=== PATIENT | male | born 1995 | race Hispanic/Latino ===

== ENCOUNTER 2019-07-06 11:21 | Emergency (ER) | payer SELFPAY ==
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
--- NOTE | 2019-07-06 13:48 | RAD REPORT ---
EXAM DESCRIPTION: RAD -Hand Left 3 View - 07/06/2019 1:01 pm CLINICAL HISTORY: Left hand pain status post injury FINDINGS: Intra-articular avulsion fracture fragment base of the third middle phalanx. No dislocatio n
[2019-07-06 14:19] VITALS: TEMP 98.3; O2SAT 99
[2019-07-06 14:20] VITALS: BP 128/69
== END 2019-07-06 14:05 | disposition home or self-care (01) ==
LOC: ER 11:21
DX: S62.623A Displaced fracture of middle phalanx of left middle finger, initial encounter for closed fracture (principal); V47.5XXA Car driver injured in collision with fixed or stationary object in traffic accident, initial encounter; Y93.89 Activity, other specified; Y92.410 Unspecified street and highway as the place of occurrence of the external cause
CPT/HCPCS: 99283

== ENCOUNTER 2019-09-10 12:21 | Emergency (ER) | payer SELFPAY ==
[2019-09-10] MEDS ORDERED: ONDANSETRON 4 MG (ODT) TAB ONE (13:14)
--- NOTE | 2019-09-10 13:35 | EDPHYS ---
Physician Documentation [facility] Name: Salo Lorenzo Age: 24 yrs Sex: Male : 1995 Arrival Date: 09/10/2019 Time: 12:22 Bed 10 Private MD: ED Physician Cristóbal Ram HPI: 09/10 13:03 This 24 yrs old Male presents to ER via Ambulatory with complaints of Flu rn Symptoms. 13:03 The patient or guardian reports cough, flu symptoms. Onset: The symptoms/episode rn began/occurred yesterday. Severity of symptoms: At their worst the symptoms were mild, in the emergency department the symptoms are unchanged. Modifying factors: The symptoms are alleviated by nothing, the symptoms are aggravated by nothing. The patient has not experienced similar symptoms in the past. Reports fever, chills, cough, sore throat, vomiting/diarrhea, began yesterday, non-smoker. Reports sore throat is worst of his symptoms. . Historical: - Allergies: 12:55 No Known Allergies; aj1 - Home Meds: 12:55 None [Active]; aj1 - PMHx: 12:55 None; aj1 - Immunization history:: Flu vaccine is not up to date. - Social history:: Smoking status: Patient/guardian denies using tobacco. - Ebola Screening: : Patient denies travel to an Ebola-affected area in the 21 days before illness onset. - Family history:: not pertinent. - Hospitalizations: : No recent hospitalization is reported. 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 Exam: 13:03 Constitutional: This is a well developed, well nourished patient who is awake, alert, rn and in no acute distress. Head/Face: Normocephalic, atraumatic. Eyes: Pupils equal round and reactive to light, extra-ocular motions intact. Lids and lashes normal. Conjunctiva and sclera are non-icteric and not injected. Cornea within normal limits. Periorbital areas with no swelling, redness, or edema. ENT: Mild pharyngeal erythema, no exudate, no stridor Neck: Trachea midline, no thyromegaly or masses palpated, and no cervical lymphadenopathy. Supple, full range of motion without nuchal rigidity, or vertebral point tenderness. No Meningismus. Cardiovascular: tachycardic, regular Respiratory: No increased work of breathing, no retractions or nasal flaring. Skin: Warm, dry MS/ Extremity: Pulses equal, no cyanosis. Neurovascular intact. Full, normal range of motion. Equal circumference. Neuro: Awake and alert, GCS 15, oriented to person, place, time, and situation. Cranial nerves II-XII grossly intact. Motor strength 5/5 in all extremities. Sensory grossly intact. Cerebellar exam normal. Normal gait. Vital Signs: 12:55 BP 137 / 86; Pulse 112; Resp 20; Temp 98.2; Pulse Ox 98% on R/A; Weight 100.7 kg (R); aj1 Height 5 ft. 9 in. (175.26 cm) (R); Pain 0/10; 12:55 Body Mass Index 32.78 (100.70 kg, 175.26 cm) aj1 MDM: 12:58 Patient medically screened. rn 13:32 Differential Diagnosis: Influenza Upper Respiratory Infection Pharyngitis Viral rn Syndrome. Data reviewed: vital signs, nurses notes, lab test result(s), and as a result, I will discharge patient. Counseling: I had a detailed discussion with the patient and/or guardian regarding: the historical points, exam findings, and any diagnostic results supporting the discharge/admit diagnosis, lab results, the need for outpatient follow up, to return to the emergency department if symptoms worsen or persist or if there are any questions or concerns that arise at home. Special discussion: I discussed with the patient/guardian in detail that at this point there is no indication for admission to the hospital. It is understood, however, that if the symptoms persist or worsen the patient needs to return immediately for re-evaluation. 13:32 ED course: Strep/flu neg, most likely flu-like illness that we have been seeing go rn around. No abx indicated.. 09/10 12:55 Order name: Flu; Complete Time: 13:32 aj 09/10 12:55 Order name: Strep; Complete Time: 13:32 [facility] 09/10 13:32 Order name: Throat Culture EDMS Administered Medications: 13:14 Drug: Zofran 4 mg Route: PO; iw 13:24 Follow up: Response: No adverse reaction iw Disposition: 09/10/19 13:34 Discharged to Home. Impression: Viral syndrome. - Condition is Stable. - Discharge Instructions: Upper Respiratory Infection, Adult. - Prescriptions for Zofran ODT 4 mg Oral tablet,disintegrating - place 1 tablet by TRANSLINGUAL route every 8 hours As needed; 15 tablet. - Work release form, Medication Reconciliation Form, Thank You Letter, Antibiotic Education, Prescription Opioid Use form. - Follow up: Private Physician; When: As needed; Reason: Recheck today's complaints, Re-evaluation by your physician. - Problem is new. - Symptoms have improved. Signatures: Dispatcher [employer] EDCT Rhianna Ulrich RN RN aj1 Pina Boogie RN RN iw Cristóbal Ram MD MD flange turner: (The following items were deleted from the chart) 13:42 13:34 09/10/2019 13:34 Discharged to Home. Impression: Viral syndrome. Condition is iw Stable. Forms are Medication Reconciliation Form, Thank You Letter, Antibiotic Education, Prescription Opioid Use. Follow up: Private Physician; When: As needed; Reason: Recheck today's complaints, Re-evaluation by your physician. Problem is new. Symptoms have improved. rn
--- NOTE | 2019-09-10 13:35 | ER ---
Nurse's Notes [facility] Name: Salo Lorenzo Age: 24 yrs Sex: Male : 1995 Arrival Date: 09/10/2019 Time: 12:22 Bed 10 Private MD: Diagnosis: Viral syndrome Presentation: 09/10 12:54 Presenting complaint: Patient states: "A couple days ago I started feeling sick I think aj1 I got the flu or something" Reports fever, cough, congestion, sore throat, nausea, and diarrhea. Denies vomiting. Transition of care: patient was not received from another setting of care. Onset of symptoms was 2018. Risk Assessment: Do you want to hurt yourself or someone else? Patient reports no desire to harm self or others. Initial Sepsis Screen: Does the patient meet any 2 criteria? RR > 20 per min. No. Patient's initial sepsis screen is negative. Does the patient have a suspected source of infection? Yes: Other: fever. Care prior to arrival: None. 12:54 Method Of Arrival: Ambulatory aj 12:54 Acuity: SALLY 4 aj1 Triage Assessment: 12:55 General: Appears in no apparent distress. comfortable, Behavior is calm, cooperative, aj1 appropriate for age. Pain: Denies pain. EENT: Reports decreased hearing difficulty swallowing. Neuro: Level of Consciousness is awake, alert, obeys commands, Oriented to person, place, time, situation. Cardiovascular: Patient's skin is warm and dry. Respiratory: Reports cough that is non-productive, Airway is patent Respiratory effort is even, unlabored, Respiratory pattern is regular, symmetrical. GI: Reports diarrhea, nausea, Patient currently denies vomiting. : No signs and/or symptoms were reported regarding the genitourinary system. Derm: No signs and/or symptoms reported regarding the dermatologic system. Skin is pink, warm \\T\\ dry. normal. Musculoskeletal: No signs and/or symptoms reported regarding the musculoskeletal system. Circulation, motion, and sensation intact. Historical: - Allergies: 12:55 No Known Allergies; aj1 - Home Meds: 12:55 None [Active]; aj1 - PMHx: 12:55 None; aj1 - Immunization history:: Flu vaccine is not up to date. - Social history:: Smoking status: Patient/guardian denies using tobacco. - Ebola Screening: : Patient denies travel to an Ebola-affected area in the 21 days before illness onset. - Family history:: not pertinent. - Hospitalizations: : No recent hospitalization is reported. Screenin:40 Abuse screen: Denies threats or abuse. Denies injuries from another. Nutritional iw screening: No deficits noted. Tuberculosis screening: No symptoms or risk factors identified. Fall Risk None identified. Assessment: 13:15 General: Appears. iw 13:15 Neuro: Level of Consciousness is awake, alert, obeys commands, Oriented to person, iw place, time, situation, Moves all extremities. Full function. Cardiovascular: Patient's skin is warm and dry. Derm: Skin is intact, is healthy with good turgor. Musculoskeletal: Range of motion: intact in all extremities. Vital Signs: 12:55 BP 137 / 86; Pulse 112; Resp 20; Temp 98.2; Pulse Ox 98% on R/A; Weight 100.7 kg (R); aj1 Height 5 ft. 9 in. (175.26 cm) (R); Pain 0/10; 12:55 Body Mass Index 32.78 (100.70 kg, 175.26 cm) aj1 ED Course: 12:22 Patient arrived in ED. as 12:55 Triage completed. aj1 12:55 Arm band placed on Patient placed in an exam room. aj1 12:58 Cristóbal Ram MD is Attending Physician. rn 13:01 Pina Boogie RN is Primary Nurse. iw 13:15 Patient has correct armband on for positive identification. iw 13:41 No provider procedures requiring assistance completed. Patient did not have IV access iw during this emergency room visit. Administered Medications: 13:14 Drug: Zofran 4 mg Route: PO; iw 13:24 Follow up: Response: No adverse reaction iw Outcome: 13:34 Discharge ordered by . rn 13:41 Discharged to home ambulatory. iw 13:41 Condition: good 13:41 Discharge instructions given to patient, Instructed on discharge instructions, follow iw up and referral plans. medication usage, Demonstrated understanding of instructions, follow-up care, medications, Prescriptions given X 1. 13:42 Patient left the ED. iw Signatures: Rhianna Ulrich RN RN aj1 Annie Aleman as Pina Boogie RN RN iw Cristóbal Ram MD MD editorial intern: (The following items were deleted from the chart) 17:19 17:17 General: Appears iw iw
[2019-09-10 13:52] VITALS: BP 137/86; TEMP 98.2; O2SAT 98
== END 2019-09-10 13:42 | disposition home or self-care (01) ==
LOC: ER 12:21
DX: B34.9 Viral infection, unspecified (principal)
CPT/HCPCS: 87070; 87081; 87804; 99283

== ENCOUNTER 2020-08-19 15:04 | Emergency (ER) | payer SELFPAY ==
--- NOTE | 2020-08-19 17:27 | RAD REPORT ---
EXAM DESCRIPTION: CT - Head Brain Wo Cont - 08/19/2020 5:12 pm CLINICAL HISTORY: HEADACHE COMPARISON: No comparisons TECHNIQUE: All CT scans are performed using dose optimization technique as appropriate and may inclu de automated exposure control or mA/KV adjustment according to patient size. FINDINGS: No intracranial hemorrhage, hydrocephalus or extra-axial fluid collection.No areas of brai n edema or evidence of midline shift. The paranasal sinuses and mastoids are clear. The calvarium is intact. IMPRESSION: No acute intracranial abnormality.
[2020-08-19] MEDS ORDERED: dexAMETHasone 10 MG/ML VIAL ONE (18:37)
[2020-08-19] MEDS ORDERED: NA CHLORIDE 0.9% 500 ML ONE (18:37)
[2020-08-19] MEDS ORDERED: DIPHENHYDRAMINE 50 MG/ML VIAL ONE (18:37)
[2020-08-19] MEDS ORDERED: METOCLOPRAMIDE 10 MG/2mL INJ ONE (18:37)
--- NOTE | 2020-08-19 19:10 | EDPHYS ---
Physician Documentation [facility] Name: Salo Lorenzo Age: 24 yrs Sex: Male : 1995 Arrival Date: 08/19/2020 Time: 15:06 Bed 26 Private MD: ED Physician Ruy Duran HPI: 08/19 18:05 This 24 yrs old Male presents to ER via Ambulatory with complaints of Headache.jmm 18:05 The patient complains of pain to the forehead, left eye and left congregational. The patient jmm describes the headache as aching. Onset: The symptoms/episode began/occurred gradually, 3 day(s) ago. Associated signs and symptoms: Pertinent positives: nausea, Pertinent negatives: fever. This is a 24 year old male with no chronic medical conditions that presents to the ED with complaints of left sided headache, nausea beginning approx 3 days ago. Denies previous history of headaches. Denies fever, neck stiffness. Historical: - Allergies: 15:31 No Known Allergies; iw - Home Meds: 15:31 None [Active]; iw - PMHx: 15:31 None; iw - PSHx: 15:31 None; iw - Immunization history:: Adult Immunizations not up to date. - Social history:: Smoking status: Patient denies any tobacco usage or history of. ROS: 18:05 Constitutional: Negative for fever, chills, and weight loss, Cardiovascular: Negative jmm for chest pain, palpitations, and edema, Respiratory: Negative for shortness of breath, cough, wheezing, and pleuritic chest pain. 18:05 Abdomen/GI: Positive for nausea. 18:05 All other systems are negative. Exam: 18:05 Constitutional: This is a well developed, well nourished patient who is awake, alert, jmm and in no acute distress. Head/Face: atraumatic. Eyes: EOMI, no conjunctival erythema appreciated ENT: Moist Mucus Membranes Neck: Trachea midline, Supple Chest/axilla: Normal chest wall appearance and motion. Cardiovascular: Regular rate and rhythm. No edema appreciated Respiratory: Normal respirations, no respiratory distress appreciated Abdomen/GI: Non distended, soft Back: Normal ROM Skin: General appearance color normal MS/ Extremity: Moves all extremities, no obvious deformities appreciated, no edema noted to the lower extremities Neuro: Awake and alert, normal gait Psych: Behavior is normal, Mood is normal, Patient is cooperative and pleasant Vital Signs: 15:28 BP 133 / 81; Pulse 92; Resp 16; Temp 98.5; Pulse Ox 98% on R/A; Weight 106.59 kg; iw Height 5 ft. 10 in. (177.80 cm); Pain 4/10; 17:51 BP 131 / 76; Pulse 91; Resp 16 S; Pulse Ox 100% on R/A; ca1 19:09 BP 126 / 78; Pulse 81; Resp 16 S; Pulse Ox 100% on R/A; ca1 15:28 Body Mass Index 33.72 (106.59 kg, 177.80 cm) iw MDM: 17:58 Patient medically screened. [facility] 19:07 Data reviewed: vital signs, nurses notes. Counseling: I had a detailed discussion with nneka the patient and/or guardian regarding: the historical points, exam findings, and any diagnostic results supporting the discharge/admit diagnosis, radiology results, the need for outpatient follow up, to return to the emergency department if symptoms worsen or persist or if there are any questions or concerns that arise at home. ED course: SOUZA is resolved in the ED. Patient is afebrile, neck is supple. I do not suspect meningitis. Gradual onset headache, CT negative, I do not currently suspect SAH. Patient is advised to follow up with neuro for further evaluation and otherwise given strict return precautions. Patient understood and agrees with the plan of care. . 08/19 16:35 Order name: CT Head Brain wo Cont; Complete Time: 17:44 iw 08/19 18:03 Order name: Saline Lock; Complete Time: 18:18 [facility] Administered Medications: 18:22 Drug: NS 0.9% 500 ml Route: IV; Rate: bolus; Site: right antecubital; ca1 19:09 Follow up: Response: No adverse reaction; IV Status: Completed infusion; IV Intake: ca1 500ml 18:24 Drug: Decadron - Dexamethasone 10 mg Route: IVP; Site: right antecubital; ca1 19:10 Follow up: Response: No adverse reaction; Pain is decreased ca1 18:26 Drug: diphenhydrAMINE 12.5 mg Route: IVP; Site: right antecubital; ca1 19:10 Follow up: Response: No adverse reaction; Pain is decreased ca1 18:28 Drug: Reglan 20 mg Route: IVP; Site: right antecubital; ca1 19:10 Follow up: Response: No adverse reaction; Pain is decreased ca1 Disposition: 08/19/20 19:09 Discharged to Home. Impression: Headache. - Condition is Stable. - Discharge Instructions: Migraine Headache. - Medication Reconciliation Form, Thank You Letter, Antibiotic Education, Prescription Opioid Use, Work release form form. - Follow up: Gary Sandoval MD; When: 2 - 3 days; Reason: Recheck today's complaints, Continuance of care, Re-evaluation by your physician. Addendum: 09/01/2020 04:00 Co-signature as Attending Physician, Ruy Durna MD. m a2 Signatures: Dispatcher [employer] EDMS Shubham Tolliver PA PA jmm Williams, Irene, RN RN iw Ruy Duran MD MD ma2 Aishwarya Jasso RN RN ca1 Corrections: (The following items were deleted from the chart) 08/19 19:17 19:09 08/19/2020 19:09 Discharged to Home. Impression: Headache. Condition is Stable. ca1 Forms are Medication Reconciliation Form, Thank You Letter, Antibiotic Education, Prescription Opioid Use. Follow up: Gary Sandoval; When: 2 - 3 days; Reason: Recheck today's complaints, Continuance of care, Re-evaluation by your physician. nneka
--- NOTE | 2020-08-19 19:10 | ER ---
Nurse's Notes [facility] Name: Salo Lorenzo Age: 24 yrs Sex: Male : 1995 Arrival Date: 08/19/2020 Time: 15:06 Bed 26 Private MD: Diagnosis: Headache Presentation: 08/19 15:28 Chief complaint: Patient states: frontal headache X 3 days, sensitive to light, hx of iw headaches but usually goes away after a couple hours, denies fever chills, no cough/congestion. Coronavirus screen: headache. Ebola Screen: Patient negative for fever greater than or equal to 101.5 degrees Fahrenheit, and additional compatible Ebola Virus Disease symptoms Patient denies exposure to infectious person. Patient denies travel to an Ebola-affected area in the 21 days before illness onset. No symptoms or risks identified at this time. Initial Sepsis Screen: Does the patient meet any 2 criteria? No. Patient's initial sepsis screen is negative. Does the patient have a suspected source of infection? No. Patient's initial sepsis screen is negative. Risk Assessment: Do you want to hurt yourself or someone else? Patient reports no desire to harm self or others. Onset of symptoms was August 16, 2020. 15:28 Method Of Arrival: Ambulatory iw 15:28 Acuity: SALLY 3 iw Historical: - Allergies: 15:31 No Known Allergies; iw - Home Meds: 15:31 None [Active]; iw - PMHx: 15:31 None; iw - PSHx: 15:31 None; iw - Immunization history:: Adult Immunizations not up to date. - Social history:: Smoking status: Patient denies any tobacco usage or history of. Screenin:50 Abuse screen: Denies threats or abuse. Denies injuries from another. Nutritional ca1 screening: No deficits noted. Tuberculosis screening: No symptoms or risk factors identified. Fall Risk None identified. Assessment: 17:50 General: Appears in no apparent distress. comfortable, Behavior is calm, cooperative, ca1 appropriate for age. Pain: Complains of pain in forehead Pain does not radiate. Pain currently is 5 out of 10 on a pain scale. Pain began 2-3 days ago. Is intermittent. Neuro: Level of Consciousness is awake, alert, obeys commands, Oriented to person, place, time, situation. Derm: Skin is intact, is healthy with good turgor, Skin is pink, warm \T\ dry. Musculoskeletal: Circulation, motion, and sensation intact. Capillary refill < 3 seconds. 19:09 Reassessment: Patient appears in no apparent distress at this time. Patient and/or ca1 family updated on plan of care and expected duration. Pain level reassessed. Patient is alert, oriented x 3, equal unlabored respirations, skin warm/dry/pink. Vital Signs: 15:28 BP 133 / 81; Pulse 92; Resp 16; Temp 98.5; Pulse Ox 98% on R/A; Weight 106.59 kg; iw Height 5 ft. 10 in. (177.80 cm); Pain 4/10; 17:51 BP 131 / 76; Pulse 91; Resp 16 S; Pulse Ox 100% on R/A; ca1 19:09 BP 126 / 78; Pulse 81; Resp 16 S; Pulse Ox 100% on R/A; ca1 15:28 Body Mass Index 33.72 (106.59 kg, 177.80 cm) iw ED Course: 15:06 Patient arrived in ED. rg4 15:31 Triage completed. iw 15:31 Arm band placed on. iw 17:12 CT Head Brain wo Cont In Process Unspecified. EDMS 17:42 Shubham Tolliver PA is PHCP. jmm 17:42 Ruy Duran MD is Attending Physician. [facility] 17:46 Aishwarya Jasso, JOSE is Primary Nurse. ca1 17:50 Patient has correct armband on for positive identification. Bed in low position. Call ca1 light in reach. Side rails up X 1. Pulse ox on. NIBP on. 18:15 Inserted saline lock: 20 gauge in right antecubital area, using aseptic technique. jp3 Blood collected. 19:09 Gary Sandoval MD is Referral Physician. [facility] 19:17 No provider procedures requiring assistance completed. IV discontinued, intact, ca1 bleeding controlled, No redness/swelling at site. Pressure dressing applied. Administered Medications: 18:22 Drug: NS 0.9% 500 ml Route: IV; Rate: bolus; Site: right antecubital; ca1 19:09 Follow up: Response: No adverse reaction; IV Status: Completed infusion; IV Intake: ca1 500ml 18:24 Drug: Decadron - Dexamethasone 10 mg Route: IVP; Site: right antecubital; ca1 19:10 Follow up: Response: No adverse reaction; Pain is decreased ca1 18:26 Drug: diphenhydrAMINE 12.5 mg Route: IVP; Site: right antecubital; ca1 19:10 Follow up: Response: No adverse reaction; Pain is decreased ca1 18:28 Drug: Reglan 20 mg Route: IVP; Site: right antecubital; ca1 19:10 Follow up: Response: No adverse reaction; Pain is decreased ca1 Intake: 19:09 IV: 500ml; Total: 500ml. ca1 Outcome: 19:09 Discharge ordered by . nneka 19:17 Discharged to home ambulatory, with friend. ca1 19:17 Condition: stable 19:17 Discharge instructions given to patient, Instructed on discharge instructions, follow up and referral plans. Demonstrated understanding of instructions, follow-up care. 19:17 Patient left the ED. ca1 Signatures: Dispatcher [employer] EDMS Shubham Tolliver PA PA jmm Williams, Irene, Emily Thomas RN rg4 Casey Babcock jp3 Aishwarya Jasso RN RN ca1
== END 2020-08-19 19:17 | disposition home or self-care (01) ==
LOC: ER 15:04
DX: R51.9 Headache, unspecified (principal)
CPT/HCPCS: 70450; 96361; 96374; 96375; 99284; J1100; J1200; J2765; J7040

== ENCOUNTER 2021-03-01 18:24 | Emergency (ER) | payer SELFPAY ==
--- NOTE | 2021-03-01 18:50 | ER ---
Nurse's Notes [facility] Name: Salo Lorenzo Age: 25 yrs Sex: Male : 1995 Arrival Date: 03/01/2021 Time: 18:26 Bed Waiting Private MD: Diagnosis: Laceration without foreign body of left index finger without damage to nail Presentation: 03/01 18:44 Chief complaint: Patient states: L hand 2nd digit laceration with edge of can tonight ll1 at 1805. Bleeding controlled. Coronavirus screen: Client denies travel out of the [place] in the last 14 days. At this time, the client does not indicate any symptoms associated with coronavirus-19. Ebola Screen: Patient denies travel to an Ebola-affected area in the 21 days before illness onset. Complicating Factors: There are no complicating factors for this patient. Initial Sepsis Screen: Does the patient meet any 2 criteria? No. Patient's initial sepsis screen is negative. Does the patient have a suspected source of infection? Yes: Skin breakdown/wound. Risk Assessment: Do you want to hurt yourself or someone else? Patient reports no desire to harm self or others. Onset of symptoms was March 01, 2021. 18:44 Method Of Arrival: Ambulatory ll1 18:44 Acuity: SALLY 4 ll1 Historical: - Allergies: 18:44 No Known Allergies; ll1 - PMHx: 18:44 None; ll1 - PSHx: 18:44 None; ll1 - Immunization history:: Flu vaccine is not up to date. - Social history:: Smoking status: Patient denies any tobacco usage or history of. Screenin:54 Abuse screen: Denies threats or abuse. Nutritional screening: No deficits noted. ll1 Tuberculosis screening: No symptoms or risk factors identified. Fall Risk Total Hutchins Fall Scale indicates No Risk (0-24 pts). Assessment: 18:52 General: Appears in no apparent distress. Behavior is calm, cooperative, appropriate ll1 for age. Pain: Complains of pain in L hand 2nd digit Quality of pain is described as aching, Aggravated by increased activity. Derm: Wound noted abrasion Wound is abrasion Reports pain. Musculoskeletal: Circulation, motion, and sensation intact. Capillary refill < 3 seconds, Tenderness present in L hand 2nd digit Reports pain in L hand 2nd digit. Injury Description: Laceration sustained to L hand 2nd digit is clean, superficial. Vital Signs: 18:44 Pulse 82; Resp 17; Temp 97.4; Pulse Ox 99% ; Weight 106.59 kg; Height 5 ft. 10 in. ll1 (177.80 cm); Pain 9/10; 18:44 BP 118 / 63; ll1 18:44 Body Mass Index 33.72 (106.59 kg, 177.80 cm) ll1 ED Course: 18:26 Patient arrived in ED. as 18:44 Arm band placed on. ll1 18:45 Pam Varela FNP-C is [facility]. kb 18:45 Ruy Duran MD is Attending Physician. kb 18:47 Triage completed. ll1 18:54 Patient has correct armband on for positive identification. Call light in reach. Side ll1 rails up X 1. 18:59 No provider procedures requiring assistance completed. Patient did not have IV access ll1 during this emergency room visit. Administered Medications: No medications were administered Outcome: 18:50 Discharge ordered by MD. kb 18:59 Discharged to home ambulatory. ll1 18:59 Condition: stable 18:59 Discharge instructions given to patient, Instructed on discharge instructions, follow up and referral plans. wound care, Demonstrated understanding of instructions, follow-up care, wound care. 19:00 Patient left the ED. ll1 Signatures: Pam Varela FNP-C FNP-Ckb Martinez, Amelia as Lewis, Lynsay, RN RN ll1
--- NOTE | 2021-03-01 18:51 | EDPHYS ---
Physician Documentation [facility] Name: Salo Lorenzo Age: 25 yrs Sex: Male : 1995 Arrival Date: 03/01/2021 Time: 18:26 Bed Waiting Private MD: ED Physician Ruy Duran HPI: 03/02 00:39 This 25 yrs old Male presents to ER via Ambulatory with complaints of kb Laceration - finger. 00:39 The patient has a laceration related to: opening metal can occurred at home, and there kb are no complicating factors. The injury was accidental. The laceration(s) is(are) located on the palmar aspect of middle phalanx of left index finger. Onset: The symptoms/episode began/occurred just prior to arrival. Associated signs and symptoms: The patient has no apparent associated signs or symptoms. The patient has not experienced similar symptoms in the past. The patient has not recently seen a physician. Pt reports he was opening a metal can and cut his finger on it. . Historical: - Allergies: 03/01 18:44 No Known Allergies; ll1 - PMHx: 18:44 None; ll1 - PSHx: 18:44 None; ll1 - Immunization history:: Flu vaccine is not up to date. - Social history:: Smoking status: Patient denies any tobacco usage or history of. ROS: 03/02 00:40 Constitutional: Negative for fever, chills, and weight loss. kb Skin: Positive for laceration(s), of the palmar aspect of middle phalanx of left index finger. All other systems are negative. Exam: 00:40 Constitutional: This is a well developed, well nourished patient who is awake, alert, kb and in no acute distress. Head/Face: Normocephalic, atraumatic. ENT: Moist Mucous membranes Respiratory: Respirations even and unlabored. No increased work of breathing, no retractions or nasal flaring. MS/ Extremity: Pulses equal, no cyanosis. Neurovascular intact. Full, normal range of motion. Neuro: Awake and alert, GCS 15, oriented to person, place, time, and situation. Moves all extremities. Normal gait. Psych: Awake, alert, with orientation to person, place and time. Behavior, mood, and affect are within normal limits. 00:40 Skin: injury, laceration(s), the wound is approximately 1 cm(s), of the palmar aspect of middle phalanx of left index finger, that can be described as clean, no foreign body, linear, without bleeding, laceration well approximated, unable to reopen laceration. Vital Signs: 03/01 18:44 Pulse 82; Resp 17; Temp 97.4; Pulse Ox 99% ; Weight 106.59 kg; Height 5 ft. 10 in. ll1 (177.80 cm); Pain 9/10; 18:44 BP 118 / 63; ll1 18:44 Body Mass Index 33.72 (106.59 kg, 177.80 cm) ll1 MDM: 18:46 Patient medically screened. kb 03/02 00:38 Data reviewed: vital signs, nurses notes. Data interpreted: Pulse oximetry: on room air kb is 99 %. Interpretation: normal. Counseling: I had a detailed discussion with the patient and/or guardian regarding: the historical points, exam findings, and any diagnostic results supporting the discharge/admit diagnosis, the need for outpatient follow up, a family practitioner, to return to the emergency department if symptoms worsen or persist or if there are any questions or concerns that arise at home. 00:41 ED course: Dermabond and steristrips applied to laceration to keep it from reopening kb when pt bends finger. . 03/01 18:46 Order name: Dermabond; Complete Time: 18:54 kb Administered Medications: No medications were administered Disposition: 03/01/21 18:50 Discharged to Home. Impression: Laceration without foreign body of left index finger without damage to nail. - Condition is Stable. - Discharge Instructions: Laceration Care, Adult, [id number]. - Medication Reconciliation Form, Thank You Letter, Antibiotic Education, Prescription Opioid Use, Work release form form. - Follow up: Emergency Department; When: As needed; Reason: Worsening of condition. Follow up: Private Physician; When: 2 - 3 days; Reason: Recheck today's complaints, Continuance of care, Re-evaluation by your physician. Signatures: Pam Varela, PASSENGER RATE CLERK-C PASSENGER RATE CLERK-CkJoshua Mckeon RN RN ll1 Corrections: (The following items were deleted from the chart) 03/01 19:00 18:50 03/01/2021 18:50 Discharged to Home. Impression: Laceration without foreign body ll1 of left index finger without damage to nail. Condition is Stable. Forms are Medication Reconciliation Form, Thank You Letter, Antibiotic Education, Prescription Opioid Use. Follow up: Emergency Department; When: As needed; Reason: Worsening of condition. Follow up: Private Physician; When: 2 - 3 days; Reason: Recheck today's complaints, Continuance of care, Re-evaluation by your physician. kb
[2021-03-01] MEDS ORDERED: DERMABOND SKIN ADHESIVE TOP ONE (19:10)
[2021-03-01 19:42] VITALS: BP 118/63; TEMP 97.4; O2SAT 99
== END 2021-03-01 19:00 | disposition home or self-care (01) ==
LOC: ER 18:24
DX: S61.211A Laceration without foreign body of left index finger without damage to nail, initial encounter (principal); W26.8XXA Contact with other sharp object(s), not elsewhere classified, initial encounter; Y92.009 Unspecified place in unspecified non-institutional (private) residence as the place of occurrence of the external cause
CPT/HCPCS: 99281

== ENCOUNTER 2023-07-11 07:27 | Emergency (ER) | payer SELFPAY ==
[2023-07-11] MEDS ORDERED: FAMOTIDINE 20 MG/2 ML VIAL IV ONE (07:59)
[2023-07-11] MEDS ORDERED: NA CHLORIDE 0.9% 1,000 ML ONE (07:59)
[2023-07-11] MEDS ORDERED: MORPHINE 4 MG/ML SYR ONE (07:59)
[2023-07-11] MEDS ORDERED: ONDANSETRON 4 MG/2 ML VIAL ONE (07:59)
[2023-07-11 08:02] LABS: Hematocrit 43.2 % (39.6-49.0); Lymphocytes % 32.5 % (15.3-44.8); MCV 85.7 fL (80-100); MPV 8.1 fL (7.6-11.3); Platelets 261 thou/uL (152-406); RBC Red Blood Cell Count 5.04 M/uL (4.33-5.43)
[2023-07-11 08:27] LABS: Urine Bacteria None Seen /HPF (<20); Urine Mucus 4+ /HPF (None Seen); Urine RBC >50 /HPF (None Seen)
--- NOTE | 2023-07-11 08:30 | RAD REPORT ---
EXAM DESCRIPTION: US - Abdomen Exam Limited - 07/11/2023 8:23 am CLINICAL HISTORY: ABD PAIN COMPARISON: No comparisons FINDINGS: The gallbladder demonstrates no gallstones. No pericholecystic fluid or gallbladder wall t hickening. The common bile duct is normal measuring 4 mm. The liver demonstrates increased echogenicity. IMPRESSION: Negative for cholelithiasis or acute cholecystitis. Hepatic steatosis.
--- NOTE | 2023-07-11 08:42 | RAD REPORT ---
EXAM DESCRIPTION: CTAbdomen Pelvis W Contrast - 07/11/2023 8:27 am CLINICAL HISTORY: ABD PAIN COMPARISON: No comparisons TECHNIQUE: CT of the abdomen and pelvis was performed. All CT scans are performed using dose optimization technique as appropriate and may include automated exposure control or mA/KV adjustment according to patient size. FINDINGS: Lower chest: No acute abnormality. Liver: Hepatic steatosis Biliary: No biliary ductal dilatation. Stomach: No significant focal abnormality. Duodenum: No significant focal abnormality. Pancreas: No significant abnormality. Spleen: No significant abnormality. Adrenal: No suspicious lesions. Kidney/ureter: Punctate 2 mm stone at the right UVJ with mild right-sided hydroureteronephrosis. A 3 mm stone is present in the interpolar aspect of the right kidney. Retroperitoneum: No retroperitoneal adenopathy. Vascular: No aneurysm. Bowel: No significant focal abnormality. Normal appendix . Peritoneum: No ascites or free air. Bladder: Grossly unremarkable. Reproductive: No adnexal masses. Bones: No acute fracture. Other: n/a IMPRESSION: Mild right-sided hydroureteronephrosis secondary to a 2 mm stone at the right UVJ.
[2023-07-11 08:51] LABS: Albumin 3.8 g/dL (3.4-5.0); Bilirubin Total 0.8 mg/dL (0.2-1.0); Potassium 3.4 mEq/L (3.5-5.1); Protein, Total 7.9 g/dL (6.4-8.2)
[2023-07-11] MEDS ORDERED: KETOROLAC 30 MG/ML INJ ONE (09:05)
[2023-07-11] MEDS ORDERED: MAGNESIUM SULFATE 1 gm IVPB 1 GM/100 ML BAG IV ONE (09:05)
[2023-07-11] MEDS ORDERED: TAMSULOSIN 0.4 MG SR CAP ONE (09:05)
--- NOTE | 2023-07-11 09:41 | EDPHYS ---
Physician Documentation [facility] Name: Salo Lorenzo Age: 27 yrs Sex: Male : 1995 Arrival Date: 07/11/2023 Time: 07:27 Bed 12 Private MD: ED Physician Cristóbal Ram HPI: 07/11 07:51 This 27 yrs old Male presents to ER via Unassigned with complaints of abd pain.rn 07:51 The patient presents with abdominal pain in the right upper quadrant, right lower rn quadrant. Onset: The symptoms/episode began/occurred this morning. The symptoms do not radiate. Associated signs and symptoms: Pertinent positives: nausea and vomiting, Pertinent negatives: blood in stools, chest pain, constipation, diarrhea, dysuria, fever. The symptoms are described as achy, sharp. Modifying factors: The symptoms are alleviated by nothing, the symptoms are aggravated by pressure. Severity of pain: At its worst the pain was moderate in the emergency department the pain is unchanged. The patient has not experienced similar symptoms in the past. The patient has not recently seen a physician. Patient reports right upper and right lower quadrant abdominal pain that began this morning, associated with nausea and vomiting. No fever. No blood in stool. No diarrhea. Has never had before.. Historical: - Allergies: 08:00 No Known Allergies; jl7 - Home Meds: 08:00 None [Active]; jl7 - PMHx: 08:00 None; jl7 - PSHx: 08:00 None; jl7 - Immunization history:: Adult Immunizations unknown. - Social history:: Smoking status: Patient denies any tobacco usage or history of. - Family history:: not pertinent. - Hospitalizations: : No recent hospitalization is reported. ROS: 07:51 Constitutional: Negative for fever, chills, and weight loss, Cardiovascular: Negative rn for chest pain, palpitations, and edema, Respiratory: Negative for shortness of breath, cough, wheezing, and pleuritic chest pain, Abdomen/GI: Positive for abdominal pain and nausea/vomiting MS/Extremity: Negative for injury and deformity, Skin: Negative for injury, rash, and discoloration, Neuro: Negative for headache, weakness, numbness, tingling, and seizure, Exam: 07:51 Constitutional: This is a well developed, well nourished patient who is awake, alert, rn appears uncomfortable. Ambulatory to room without assistance Head/Face: Normocephalic, atraumatic. Cardiovascular: Regular rate and rhythm. No pulse deficits. Respiratory: No increased work of breathing, no retractions or nasal flaring. Abdomen/GI: Soft, right upper quadrant tenderness and right lower quadrant tenderness without peritoneal signs, negative Nelson. No distention. Skin: Warm, dry MS/ Extremity: Pulses equal, no cyanosis. Neuro: Awake and alert, GCS 15 Vital Signs: 07:36 BP 157 / 102; Pulse 71; Resp 15; Temp 97.3(TE); Pulse Ox 96% on R/A; Weight 117.93 kg; jl7 Height 5 ft. 10 in. ; Pain 8/10; 09:20 Pain 6/10; jl7 10:06 BP 127 / 76; Pulse 70; Resp 16; Pulse Ox 98% ; cp4 07:36 Body Mass Index 37.31 (117.93 kg, 177.8 cm) jl7 07:36 Pain Scale: Adult jl7 09:20 Pain Scale: Adult jl7 MDM: 07:31 Patient medically screened. rn 09:39 Differential diagnosis: cholecystitis, Cholelithiasis, diverticulitis, non-specific abd rn pain, pancreatitis, Pyelonephritis, Ureterolithiasis, urinary tract infection. Data reviewed: vital signs, nurses notes, lab test result(s), radiologic studies, CT scan, and as a result, I will discharge patient. I considered the following discharge prescriptions or medication management in the emergency department Medications were administered in the Emergency Department. See MAR. Independent interpretation of the following test(s) in the Emergency Department CT Scan: My interpretation is CT scan images show distal right small ureteral stone per my interpretation. Counseling: I had a detailed discussion with the patient and/or guardian regarding the historical points, exam findings, and any diagnostic results supporting the discharge/admit diagnosis, lab results, radiology results, the need for outpatient follow up, to return to the emergency department if symptoms worsen or persist or if there are any questions or concerns that arise at home. Response to treatment: the patient's symptoms have markedly improved after treatment, the patient's condition has returned to base line, the patient is now symptom free, and as a result, I will discharge patient. Special discussion: Based on the patient's Hx, exam, and Dx evaluation, there is no indication for emergent surgery or inpatient Tx. It is understood by the patient/guardian that if the Sx's persist or worsen they need to return immediately for re-evaluation. I discussed with the patient/guardian in detail that at this point there is no indication for admission to the hospital. It is understood, however, that if the symptoms persist or worsen the patient needs to return immediately for re-evaluation. ED course: Patient reports after medication and time, pain has resolved. States very comfortable now. Has a 2 mm distal stone that likely has passed into the bladder at this time. Will DC home with return precautions. I have personally reviewed all of the results, including but not limited to blood tests and imaging deemed necessary to safely discharge this patient at this time. All results given to and printed out for patient. I personally went over all the results with the patient and answered all questions. Patient will follow-up with PCP and or specialist as discussed. Return precautions given and understood.. 07/11 07:43 Order name: CBC with Diff; Complete Time: 08:10 rn 07/11 07:43 Order name: CMP; Complete Time: 09:06 rn 07/11 07:43 Order name: Lipase; Complete Time: 09:06 rn 07/11 08:21 Order name: Urine Microscopic Only; Complete Time: 08:44 EDMS 07/11 07:43 Order name: CT Abd/Pelvis - IV Contrast Only; Complete Time: 08:44 rn 07/11 07:43 Order name: US Abdomen Limited; Complete Time: 08:44 rn 07/11 07:43 Order name: IV Saline Lock; Complete Time: 07:44 rn 07/11 07:43 Order name: Labs collected and sent; Complete Time: 07:44 rn Administered Medications: 07:57 Drug: NS 0.9% IV 1000 ml IV at 1 bolus Per protocol; 1000 mL bolus Route: IV; Rate: 1 jl7 bolus; Site: right antecubital; 10:01 Follow up: Response: No adverse reaction; IV Status: Completed infusion; IV Intake: jl7 1000ml 07:57 Drug: Famotidine IVP 20 mg IVP once; dilute with 10 mL 0.9% NaCl; give over 2 minutes jl7 Route: IVP; Site: right antecubital; 10:01 Follow up: Response: No adverse reaction jl7 07:57 Drug: Ondansetron IVP 4 mg IVP once; over 2 minutes Route: IVP; Site: right antecubital;jl7 10:02 Follow up: Response: No adverse reaction 07:57 Drug: morphine IVP or IV 4 mg IVP once over 4 mins Route: IVP; Infused Over: 4 mins; jl7 Site: right antecubital; 08:15 Follow up: Response: No adverse reaction; Pain is decreased jl7 08:50 Drug: Flomax PO 0.4 mg PO once Route: PO; jl7 10:01 Follow up: Response: No adverse reaction jl7 08:55 Drug: Ketorolac IVP 15 mg IVP once Route: IVP; Site: right antecubital; jl7 09:20 Follow up: Pain /10 Adult; Response: No adverse reaction; Pain is decreased jl7 09:00 Drug: Magnesium Sulfate IVPB 1 grams IVPB once over 1 hrs Route: IVPB; Infused Over: 1 jl7 hrs; Site: right antecubital; 10:01 Follow up: Response: No adverse reaction; IV Status: Completed infusion jl7 Disposition Summary: 07/11/23 09:40 Discharge Ordered Notes: Location: Home rn Problem: new rn Symptoms: have improved rn Condition: Stable rn Diagnosis - Calculus of kidney with calculus of ureter rn Followup: rn - With: Private Physician - When: As needed - Reason: Recheck today's complaints, Re-evaluation by your physician Discharge Instructions: - Discharge Summary Sheet rn - Kidney Stones rn - Renal Colic rn - Dietary Guidelines to Help Prevent Kidney Stones rn Forms: - Medication Reconciliation Form rn - Thank You Letter rn - Antibiotic assistant city attorney - Prescription Opioid Use rn - Patient Portal Instructions rn - Leadership Thank You Letter rn Signatures: Dispatcher [employer] Cristóbal Flowers MD MD rn Leal, Jahala, RN RN jl7 Corrections: (The following items were deleted from the chart) 08:21 07:43 Urinalysis+U.LAB.BRZ ordered. OBIME LEONEL
--- NOTE | 2023-07-11 09:41 | ER ---
Nurse's Notes [facility] Name: Salo Lorenzo Age: 27 yrs Sex: Male : 1995 Arrival Date: 07/11/2023 Time: 07:27 Bed 12 Private MD: Diagnosis: Calculus of kidney with calculus of ureter Presentation: 07/11 07:36 Chief complaint: Patient states: RUQ abdominal pain, radiates to back, started this jl7 morning, N/V, denies diarrhea, denies fever. 07:36 Coronavirus screen: At this time, the client does not indicate any symptoms associated jl7 with coronavirus-19. Ebola Screen: No symptoms or risks identified at this time. Initial Sepsis Screen: Does the patient meet any 2 criteria? No. Patient's initial sepsis screen is negative. Does the patient have a suspected source of infection? No. Patient's initial sepsis screen is negative. Risk Assessment: Do you want to hurt yourself or someone else? Patient reports no desire to harm self or others. Onset of symptoms was July 11, 2023. 07:36 Method Of Arrival: Ambulatory [facility] 07:36 Acuity: SALLY 3 jl7 Triage Assessment: 08:00 General: Appears in no apparent distress. uncomfortable, Behavior is calm, cooperative, jl7 appropriate for age. Pain: Complains of pain in anterior aspect of right lateral abdomen, posterior aspect of right lateral abdomen and right upper quadrant Pain currently is 8 out of 10 on a pain scale. Neuro: Level of Consciousness is awake, alert, obeys commands, Oriented to person, place, time, situation. Cardiovascular: Patient's skin is warm and dry. Respiratory: Airway is patent Respiratory effort is even, unlabored, Respiratory pattern is regular, symmetrical. Derm: Skin is pink, warm \T\ dry. 08:00 GI: Reports nausea, vomiting. : Denies burning with urination, pain. : Reports Pt jl7 reports increased pain after voiding. Historical: - Allergies: 08:00 No Known Allergies; jl7 - Home Meds: 08:00 None [Active]; jl7 - PMHx: 08:00 None; jl7 - PSHx: 08:00 None; jl7 - Immunization history:: Adult Immunizations unknown. - Social history:: Smoking status: Patient denies any tobacco usage or history of. - Family history:: not pertinent. - Hospitalizations: : No recent hospitalization is reported. Screenin:07 [facility] ED Fall Risk Assessment (Adult) History of falling in the last 3 months, cp4 including since admission No falls in past 3 months (0 pts) Confusion or Disorientation No (0 pts) Intoxicated or Sedated No (0 pts) Impaired Gait No (0 pts) Mobility Assist Device Used No (0 pt) Altered Elimination No (0 pt) Score/Fall Risk Level 0 - 2 = Low Risk Oriented to surroundings, Maintained a safe environment, Educated pt \T\ family on fall prevention, incl call for assistance when getting out of bed, Hourly rounding (assess needs \T\ fall precautionary measures) done. Abuse screen: Denies threats or abuse. Nutritional screening: No deficits noted. Tuberculosis screening: No symptoms or risk factors identified. Assessment: 07:55 Reassessment: Pt to radiology via wheelchair. jl7 09:00 Reassessment: Patient appears in no apparent distress at this time. Patient and/or jl7 family updated on plan of care and expected duration. Pain level reassessed. Patient is alert, oriented x 3, equal unlabored respirations, skin warm/dry/pink. Patient states feeling better. Vital Signs: 07:36 BP 157 / 102; Pulse 71; Resp 15; Temp 97.3(TE); Pulse Ox 96% on R/A; Weight 117.93 kg; jl7 Height 5 ft. 10 in. ; Pain 8/10; 09:20 Pain 6/10; jl7 10:06 BP 127 / 76; Pulse 70; Resp 16; Pulse Ox 98% ; cp4 07:36 Body Mass Index 37.31 (117.93 kg, 177.8 cm) jl7 07:36 Pain Scale: Adult jl7 09:20 Pain Scale: Adult jl7 ED Course: 07:30 Patient arrived in ED. kj1 07:30 Cristóbal Ram MD is Attending Physician. rn 07:43 Triston Cortez RN is Primary Nurse. jl7 08:00 Triage completed. jl7 08:00 Arm band placed on right wrist. jl7 08:25 US Abdomen Limited In Process Unspecified. EDMS 08:29 CT Abd/Pelvis - IV Contrast Only In Process Unspecified. EDMS 10:07 Bed in low position. Call light in reach. Side rails up X 1. Provided Education on: cp4 kidney stones and renal colic. 10:07 No provider procedures requiring assistance completed. cp4 10:07 intact, bleeding controlled, No redness/swelling at site. Pressure dressing applied. cp4 Administered Medications: 07:57 Drug: NS 0.9% IV 1000 ml IV at 1 bolus Per protocol; 1000 mL bolus Route: IV; Rate: 1 jl7 bolus; Site: right antecubital; 10:01 Follow up: Response: No adverse reaction; IV Status: Completed infusion; IV Intake: jl7 1000ml 07:57 Drug: Famotidine IVP 20 mg IVP once; dilute with 10 mL 0.9% NaCl; give over 2 minutes jl7 Route: IVP; Site: right antecubital; 10:01 Follow up: Response: No adverse reaction jl7 07:57 Drug: Ondansetron IVP 4 mg IVP once; over 2 minutes Route: IVP; Site: right antecubital;jl7 10:02 Follow up: Response: No adverse reaction jl7 07:57 Drug: morphine IVP or IV 4 mg IVP once over 4 mins Route: IVP; Infused Over: 4 mins; jl7 Site: right antecubital; 08:15 Follow up: Response: No adverse reaction; Pain is decreased jl7 08:50 Drug: Flomax PO 0.4 mg PO once Route: PO; jl7 10:01 Follow up: Response: No adverse reaction jl7 08:55 Drug: Ketorolac IVP 15 mg IVP once Route: IVP; Site: right antecubital; jl7 09:20 Follow up: Pain 6/10 Adult; Response: No adverse reaction; Pain is decreased jl7 09:00 Drug: Magnesium Sulfate IVPB 1 grams IVPB once over 1 hrs Route: IVPB; Infused Over: 1 jl7 hrs; Site: right antecubital; 10:01 Follow up: Response: No adverse reaction; IV Status: Completed infusion jl7 Medication: 10:07 VIS not applicable for this client. cp4 Intake: 10: IV: 1000ml; Total: 1000ml. jl7 Outcome: 09:40 Discharge ordered by MD. vance 10:07 Discharged to home ambulatory, cp4 10:07 Condition: stable 10:07 Discharge instructions given to patient, Instructed on discharge instructions, follow up and referral plans. Demonstrated understanding of instructions, follow-up care, 10:17 Patient left the ED. cp4 Signatures: Dispatcher [employer] Cristóbal Flowers MD MD rn Leal, Jahala, RN RN jl7 Jackson, Kandis kj1 Potter, Christina cp4
[2023-07-11 10:21] VITALS: TEMP 97.3
[2023-07-11 10:24] VITALS: BP 127/76; O2SAT 98
== END 2023-07-11 10:17 | disposition home or self-care (01) ==
LOC: ER 07:27
DX: N20.2 Calculus of kidney with calculus of ureter (principal)
CPT/HCPCS: 36415; 74177; 76705; 80053; 81015; 83690; 85025; 96361; 96365; 96375; 99284; J2405; J3475; J7030; Q9967